=== PATIENT | male | born 1980 | race Caucasian/White ===

== ENCOUNTER 2017-02-20 21:32 | Emergency (ER) | payer OTHER ==
[~2017-02-20 21:32] MED LIST: CLEOCIN HCL300 MG PO; COLACE100 MG PO; GLIPIZIDE10 MG PO; GLU10 PO; GLU850 PO; HYDROCHLOROTHIA1 POW; HYDROCHLOROTHIA25 MG PO; LAC PO; LANTI SQ; LANTUS100 U/ML SC; LISINOPRIL1 PO1; LOVASTATIN40 MG PO; METFORMIN HCL850 MG PO; METFORMIN500 M1 PO; NORCO1 TA1 PO; TRICOR145 M1 PO; ZES20 PO; ZESTRIL20 MG PO
[2017-02-20 23:40] VITALS: BP 158/90
== END 2017-02-20 23:41 | disposition home or self-care (01) ==
LOC: ED 21:32
DX: S30.850A Superficial foreign body of lower back and pelvis, initial encounter (principal); E11.9 Type 2 diabetes mellitus without complications; I10 Essential (primary) hypertension; X58.XXXA Exposure to other specified factors, initial encounter; Y93.89 Activity, other specified; Y99.8 Other external cause status; Y92.89 Other specified places as the place of occurrence of the external cause
CPT/HCPCS: J2001

== ENCOUNTER 2017-02-27 13:59 | Emergency (ER) | payer OTHER ==
[2017-02-27 17:05] VITALS: BP 145/94
== END 2017-02-27 17:05 | disposition home or self-care (01) ==
LOC: ED 13:59
DX: S31.821D Laceration without foreign body of left buttock, subsequent encounter (principal); E11.9 Type 2 diabetes mellitus without complications; I10 Essential (primary) hypertension; E66.9 Obesity, unspecified; W34.00XD Accidental discharge from unspecified firearms or gun, subsequent encounter; Y99.8 Other external cause status; Y92.89 Other specified places as the place of occurrence of the external cause

== ENCOUNTER 2017-04-01 17:08 | Emergency (ER) | payer OTHER ==
[~2017-04-01] VITALS: Ht 188 cm; Wt 132.0 kg
[2017-04-01 22:00] VITALS: BP 131/75
== END 2017-04-01 22:35 | disposition home or self-care (01) ==
LOC: ED 17:08
DX: I83.811 Varicose veins of right lower extremity with pain (principal); E66.9 Obesity, unspecified; E11.9 Type 2 diabetes mellitus without complications; I10 Essential (primary) hypertension

== ENCOUNTER 2017-10-20 15:24 | Emergency (ER) | payer OTHER ==
[~2017-10-20] VITALS: Ht 188 cm; Wt 118.8 kg
[2017-10-20 16:51] VITALS: BP 136/72
== END 2017-10-20 16:51 | disposition home or self-care (01) ==
LOC: ED 15:24
DX: J20.9 Acute bronchitis, unspecified (principal); I10 Essential (primary) hypertension; E11.9 Type 2 diabetes mellitus without complications; F17.200 Nicotine dependence, unspecified, uncomplicated
CPT/HCPCS: J7613; J7644; Q0092

== ENCOUNTER 2019-01-09 14:29 | Emergency (ER) | payer OTHER ==
[~2019-01-09] VITALS: Ht 188 cm; Wt 122.5 kg
[2019-01-09 14:33] VITALS: Ht 188 cm; Wt 122.5 kg
[2019-01-09 17:05] VITALS: BP 145/83
== END 2019-01-09 17:05 | disposition home or self-care (01) ==
LOC: ED 14:29
DX: S29.9XXA Unspecified injury of thorax, initial encounter (principal); I10 Essential (primary) hypertension; E11.9 Type 2 diabetes mellitus without complications; X58.XXXA Exposure to other specified factors, initial encounter; Y93.89 Activity, other specified; Y92.89 Other specified places as the place of occurrence of the external cause; Y99.8 Other external cause status
CPT/HCPCS: J1885